=== PATIENT | female | born 1995 | race Caucasian/White ===

== ENCOUNTER 2019-03-04 10:57 | Emergency (ER) | payer BC, SELFPAY ==
[2019-03-04 10:58] VITALS: BP 146/80; PULSE 88; RESP 16; TEMP 36.8; O2SAT 98; BMI 36.1
--- NOTE | 2019-03-04 11:11 | ED.VISSUMM ---
- ER Visit Summary Date of Service: 03/04/19 Chief Complaint: Abdominal pain History of Present Illness: The patient is a 23 F with a 3-day history of epigastric abdominal pain. She had diarrhea but it is now improving. She denies nausea or vomiting. She denies reflux symptoms. Physical Examination: Vital signs unremarkable. Patient sitting upright in bed no acute distress. Nontoxic-appearing. Head neck examination normal. Heart is regular rate and rhythm. Lung sounds are clear. Abdomen is soft with focal tenderness in epigastrium. No guarding or rebound. Hypoactive bowel sounds are present throughout. Test Results: CBC and chemistry studies unremarkable. LFTs and lipase normal. test negative. Emergency Department Course and Treatment: Patient was given morphine, Zofran, and IV fluids. On repeat evaluation she does report mild improvement. Bedside ultrasound was performed of the right upper quadrant did not show any obvious gross abnormalities. CT abdomen pelvis with contrast shows no acute pathology. Test results were discussed with patient and mother at bedside. She will be started on an antacid medicine and given something for pain. She will follow-up with her primary care physician, Dr. Lopez. Treatment Plan: [] Disposition: Discharge Impression: Epigastric pain, uncertain etiology This note was generated with miDrive dictation software. It may contain incorrect words, spelling, and punctuation that were not noted in review of the chart prior to signing ED Disposition - Plan for ED Patient: Disposition: Home or Assisted Living Instructions: ED Epigastric Pain [facility] Prescriptions: Hydrocodone Bitart/Apap 5-325 [Talbott 5MG-325MG] 1 tablet PO Q6H PRN PRN 3 Days #10 tablet PRN Reason: Pain Omeprazole [Prilosec] 20 mg PO DAILY #30 capsule Referrals: Osiel Lopez III, MD [Primary Care Provider] - 1 Week
[2019-03-04] MEDS: Morphine 4 MG/ML Syringe IV (11:38)
[2019-03-04] MEDS: 0.9% Normal Saline 1,000 ML 150 ML IV (11:40)
[2019-03-04] MEDS: Ondansetron 4 MG/2 ML Vial IV (11:40)
[2019-03-04 11:52] LABS: Absolute Lymphocyte Count 2.66 X10^3/ul (0.83-4.51); Absolute Neutrophil Count 4.7 X10^3/uL (2.0-7.7); Basophil# 0.04 X10^3/uL; Basophil% 0.5 % (0-1); Eosinophil# 0.47 X10^3/uL; Eosinophils% 5.6 % (0-5); Hematocrit 38.3 % (37-47); Lymphocyte # 2.66 X10^3/ul (4.0); Lymphocyte % 31.5 % (19-41); Mean Corp Hgb Conc 33.9 g/gl (32-36); Mean Corpuscular Hgb 29.7 pg (27.0-32.0); Mean Corpuscular Volume 87.4 fL (81-99); Mean Platelet Vol. 10.1 fl (6.2-12.0); Monocyte# 0.58 X10^3/uL; Monocyte% 6.9 % (0-10); Neutrophil # 4.68 X10^3/uL (2.7-7.7); Neutrophil % 55.3 % (47-70); Platelet Count 255 K/mm3 (150-450); RBC Distribution Width CV 12.4 % (11.6-14.6); RBC Distribution Width SD 40.2 fl (35.1-43.9); Red Blood Count 4.38 M/mm3 (4.2-5.4); White Blood Count 8.5 K/mm3 (4.4-11.0)
[2019-03-04 11:56] LABS: AST(SGOT) 18 U/L (15-37); Alanine Aminotransfer ALT/SGPT 24 U/L (13-56); Albumin, Serum 3.6 g/dL (3.2-5.0); Alkaline Phosphatase 53 U/L (45-117); Anion Gap 7 (5-15); BUN 13 mg/dL (7-18); BUN/Creat Ratio 17.3 RATIO (10-20); Bilirubin, Direct 0.11 mg/dL (0.00-0.30); Calcium,Total 9.3 mg/dL (8.5-10.1); Chloride 110 mmol/L (98-107); Creatinine, Serum 0.75 mg/dL (0.55-1.02); EST Glomerular Filtration Rate 103 mL/min (>60); Est Glom Filt Rate - Afr Amer 125 mL/min (>60); Estimated Creatinine Clearance 106.77 ml/min; Glucose 92 mg/dL (74-106); Lipase 242 U/L (73-393); POSITIVE COUNT NO; POSITIVE DIFFERENTIAL NO; POSITIVE MORPHOLOGY NO; Protein, Total 7.6 g/dL (6.4-8.2); Sodium Level 142 mmol/L (136-145)
[2019-03-04 12:10] LABS: Internal QC Validated? YES +Cl - CLEAR BKGD; Pregnancy, Serum, hCG Quali. NEGATIVE Negative
--- NOTE | 2019-03-04 12:29 | CT_ITS ---
STUDY: CT ABDOMEN AND PELVIS WITH CONTRAST REASON FOR EXAM: Female, 23 years old. Upper abdominal pain RADIATION DOSAGE (If Supplied By Facility): CTDIvol = ( 14.63 ) mGy, DLP = ( 1144.99 ) mGycm TECHNIQUE: Transaxial images were obtained from the dome of the diaphragm to the symphysis pubis without oral contrast. 100 ml of Isovue 300 contrast was administered. Sagittal and coronal images were reconstructed. Individualized dose optimization techniques were used for this CT. COMPARISON: None. FINDINGS: The visualized lung bases are clear. The visualized portions of the heart and pericardium are within normal limits. There are no calcified gallstones present. The liver is within normal limits. There are no suspicious hepatic lesions. The spleen is normal in size. The pancreas is within normal limits. The adrenal glands are within normal limits. There are no renal or ureteral stones. There is no hydronephrosis. There are no focal renal lesions. Normal visualized stomach. There is no bowel obstruction or inflammation. The appendix is visualized and appears normal. The aorta is normal in caliber. There is no abdominal or pelvic free air, free fluid, fluid collection or lymphadenopathy. There are no destructive osseous lesions. CT/Abdomen/Pelvis WITH Contrast IMPRESSION: No acute abdominal or pelvic pathology. Electronically Signed: Gilbert Domínguez, at 14:57 EDT Tel , Service support ,
[2019-03-04 13:53] VITALS: BP 120/68; PULSE 66; RESP 17; O2SAT 98
[2019-03-04 15:28] VITALS: BP 123/75; PULSE 77; RESP 18; O2SAT 98
== END 2019-03-04 15:39 | disposition home or self-care (01) ==
PROVIDERS: Emergency Provider Emergency Medicine; Family Provider Family Medicine; PCP Family Medicine
DX: R10.13 Epigastric pain (principal); R19.7 Diarrhea, unspecified
CPT/HCPCS: 74177; 80048; 80076; 83690; 84703; 85025; 96361; 96374; 96375; 99284; J7030; Q9967; A4216; J2405

== ENCOUNTER 2024-04-05 21:10 | Inpatient (IN) | payer BC, SELFPAY ==
[2024-04-05 21:20] VITALS: BP 144/85; PULSE 102
[2024-04-05 21:21] VITALS: BMI 44.6
[2024-04-05] MEDS: Lactated Ringers 1,000 ML 50 ML IV (21:25)
[2024-04-05 21:29] VITALS: RESP 14; TEMP 36.3
[2024-04-05 21:30] VITALS: TEMP 36.3
[2024-04-05 21:34] VITALS: BP 147/77; PULSE 84; O2SAT 95
[2024-04-05] MEDS: 0.9% Normal Saline Single 100 ML IV.SOLN. INTRA-UTER (21:37)
[2024-04-05 21:49] LABS: Absolute Lymphocyte Count 2.49 X10^3/uL (0.83-4.51); Absolute Neutrophil Count 9.6 X10^3/uL (2.0-7.7); Basophil# 0.04 X10^3/uL; Basophil% 0.3 % (0-1); Eosinophil# 0.12 X10^3/uL; Eosinophils% 0.9 % (0-5); Hematocrit 39.7 % (37-47); Hemoglobin 13.4 g/dL (12.0-15.0); Lymphocyte # 2.49 X10^3/ul (0.83-4.51); Lymphocyte % 18.9 % (19-41); Mean Corp Hgb Conc 33.8 g/dL (32-36); Mean Corpuscular Hgb 31.2 pg (27.0-32.0); Mean Corpuscular Volume 92.3 fL (81-99); Mean Platelet Vol. 11.5 fl (6.2-12.0); Monocyte# 0.85 X10^3/uL; Monocyte% 6.4 % (0-10); NRBC Flagged by Analyzer 0 % (0-5); Neutrophil % 72.9 % (47-70); Platelet Count 205 K/mm3 (150-450); RBC Distribution Width CV 13.7 % (11.6-14.6); RBC Distribution Width SD 46.3 fl (35.1-43.9); White Blood Count 13.2 K/mm3 (4.4-11.0)
--- NOTE | 2024-04-05 21:56 | PCM.HP.OB ---
HPI - General General Date of Admission: 04/05/24 HPI Narrative HETAL MENDEZ, is a 28 F at 39.2 weeks gestation who presents for induction of labor for obesity. Maternal Data Information TOAN Calculator Estimated Delivery Date Method Current WG Current Estimate 04/10/24 Manual 39w 2d PFSH PFSH Home Medications ?Medication ?Instructions ?Recorded ?Last Taken ?Type acyclovir 400 mg tablet 400 mg PO TID HSV 04/05/24 04/04/24 History aspirin 81 mg capsule 81 mg PO DAILY 04/05/24 04/04/24 History vit no.95-ferrous 1 tab PO DAILY 04/05/24 04/04/24 History fumarate 28 mg-folic acid 800 mcg tablet () Allergy/AdvReac Type Severity Reaction Status Date / Time No Known Allergies Allergy Verified 04/05/24 21:18 Surgical History History of tonsillectomy Social History Smoking Status: Never smoker History Elective abortions Hx Para 0 Spontaneous abortions Hx # Term Pregnancies Ectopic pregnancies Hx # Pregnancies Multiple births # of living children NST FHR Rate Baby A Baseline: 140 Variability:: Moderate Accelerations:: 15 x 15 Decelerations:: None NST Reactive:: Yes FHR Category:: Category I Uterine Activity:: Occasional ROS Eyes Eyes: Denies blurry vision, change in vision or spots in vision ENT HEENT: Denies dizziness or headache(s) Cardiovascular Cardiovascular: Denies abdominal pain, chest pain or dyspnea Respiratory/Chest Respiratory/Chest: Denies cough, dyspnea, shortness of breath at rest or shortness of breath with exertion Gastrointestinal Gastrointestinal: Denies abdominal pain, diarrhea or vomiting Genitourinary Genitourinary: Denies change in urinary stream, difficulty urinating or dysuria Musculoskeletal Musculoskeletal: Reports none Integumentary Integumentary: Denies rash Neurologic Neurologic: Denies dizziness, headache(s), memory loss or weakness Psychiatric Psychiatric: Reports none Vital Signs Vital Signs Vital Signs: 04/05/24 21:20 04/05/24 21:20 04/05/24 21:29 Temperature Temperature Source Temporal Pulse Rate 102 H Respiratory Rate Blood Pressure 144/85 H BP Systolic 144 BP Diastolic 85 Pulse Ox 04/05/24 21:29 04/05/24 21:29 04/05/24 21:30 Temperature 97.3 F L 97.3 F L Temperature Source Pulse Rate Respiratory Rate 14 Blood Pressure BP Systolic BP Diastolic Pulse Ox 04/05/24 21:34 04/05/24 21:34 04/05/24 21:34 Temperature Temperature Source Pulse Rate 84 Respiratory Rate Blood Pressure 147/77 H BP Systolic 147 BP Diastolic 77 Pulse Ox 95 Weight Weight: 268 lb 1.314 oz Body Mass Index (BMI) 44.6 Physical Exam Const alert and no apparent distress General Appearance: cooperative Orientation / Consciousness: awake Exam Limitations: no limitations HEENT normocephalic Eyes General Eye: normal appearance of both eyes Neck full ROM Chest inspection of chest normal Resp normal respiratory effort and normal air movement Effort and Inspection: symmetric chest movement Auscultation: clear to auscultation bilaterally Cardio regular rate GI soft to palpation, non-tender and non-distended Inspection: and other Back/Spine normal ROM Extremity full ROM, normal capillary refill and no calf tenderness Skin no rashes or lesions noted Neuro oriented x3 and CN's II-XII intact bilaterally Psych mental status grossly normal Labs Labs Labs: Antibody Screen Pending Hct 39.7 % (37-47) Hgb 13.4 g/dL (12.0-15.0) Syphilis Total Ab Pending GBS negative Assessment & Plan (1) 39 weeks gestation of : (2) Encounter for induction of labor: (3) Obesity affecting : (4) History of herpes genitalis: (5) Vitamin B deficiency: (6) Rh negative status during : (7) Rubella non-immune status, antepartum: PLAN: Plan Admit to labor and delivery Routine labs Start IV fluids and run per orders CE 1.5/60/-3- Saravia bulb placed without difficulty and filled with 30 cc N/S Start Cytotec 25 mcg PO every 4 hours x 6 doses total Pain medications / nitrous oxide if indicated Dr. Stapleton notified of admission and is collaborating physician
[2024-04-05] MEDS: miSOPROStol 25 MCG TABLET PO (22:28)
[2024-04-05 22:45] LABS: Syphilis Antibodies Non-reactive
[2024-04-06] VITALS (49 sets, daily range): BP systolic 103–179; BP diastolic 51–105; PULSE 66–97; RESP 14–18; TEMP 36–37.3; O2SAT 89–100
[2024-04-06] MEDS: Oxytocin 15 Units/NS 250ml 15 UNITS/250 ML IV.SOLN 2 UNITS IV ×2 (02:39→18:55)
--- NOTE | 2024-04-06 07:04 | PCM.PN.CNM ---
Subjective Subjective Patient sleeping at this time. Objective Data Objective Data Vital Signs: Vital Signs Temp Pulse Resp BP Pulse Ox 97.2 F L 71 16 124/58 H 99 04/06/24 06:21 04/06/24 06:21 04/06/24 06:21 04/06/24 06:21 04/06/24 05:35 Weight: 268 lb 1.314 oz Body Mass Index (BMI) 44.6 Intake & Output: Intake and Output for Last 24 Hours 04/04/24 04/05/24 04/06/24 23:59 23:59 23:59 Intake Total 20.83 / 20.83 27.90 / 27.90 Balance 20.83 / 20.83 27.90 / 27.90 Lab / Micro Data 04/05/24 21:25 Labs: Laboratory Results - last 24 hr 04/05/24 21:25: WBC 13.2 H, RBC 4.30, Hgb 13.4, Hct 39.7, MCV 92.3, MCH 31.2, MCHC 33.8, RDW Std Deviation 46.3 H, RDW Coeff of Mamta 13.7, Plt Count 205, MPV 11.5, Immature Gran % (Auto) 0.600, Neut % (Auto) 72.9 H, Lymph % (Auto) 18.9 L, Schuyler % (Auto) 6.4, Eos % (Auto) 0.9, Baso % (Auto) 0.3, Absolute Neuts (auto) 9.6 H, Absolute Lymphs (auto) 2.49, Nucleated RBC % 0, Syphilis Total Ab Non-reactive, Blood Type A NEGATIVE, Antibody Screen NEGATIVE Assessment & Plan (1) 39 weeks gestation of : (2) Encounter for induction of labor: (3) Obesity affecting : (4) History of herpes genitalis: (5) Vitamin B deficiency: (6) Rh negative status during : (7) Rubella non-immune status, antepartum: PLAN: Plan Saravia bulb out 30 minutes after placement CE 4/80/-3 per nursing- high and head not well applied Cat. 1 tracing Pitocin IV at 12 mu/min- continue to increase per policy Epidural when indicated
[2024-04-06] MEDS: Lactated Ringers 1,000 ML 999 ML IV (11:46)
[2024-04-06] MEDS: Lactated Ringers 1,000 ML 50 ML IV (12:37)
[2024-04-06] MEDS: fentaNYL-bupivacaine (epidural) 100 ML BAG EPIDURAL ×3 (13:27→22:21)
--- NOTE | 2024-04-06 16:17 | PCM.PN.OB ---
Subjective Subjective Resting in bed comfortably with epidural. Partner at bedside. Objective Data Objective Data Vital Signs: Vital Signs Temp Pulse Resp BP Pulse Ox 96.8 F L 82 16 122/61 H 100 04/06/24 15:23 04/06/24 15:24 04/06/24 15:23 04/06/24 15:24 04/06/24 13:40 Weight: 268 lb 1.314 oz Body Mass Index (BMI) 44.6 Intake & Output: Intake and Output for Last 24 Hours 04/04/24 04/05/24 04/06/24 23:59 23:59 23:59 Intake Total 20.83 / 20.83 1618.38 / 1618.38 Balance 20.83 / 20.83 1618.38 / 1618.38 Lab / Micro Data 04/05/24 21:25 Labs: Laboratory Results - last 24 hr 04/05/24 21:25: WBC 13.2 H, RBC 4.30, Hgb 13.4, Hct 39.7, MCV 92.3, MCH 31.2, MCHC 33.8, RDW Std Deviation 46.3 H, RDW Coeff of Mamta 13.7, Plt Count 205, MPV 11.5, Immature Gran % (Auto) 0.600, Neut % (Auto) 72.9 H, Lymph % (Auto) 18.9 L, Lander % (Auto) 6.4, Eos % (Auto) 0.9, Baso % (Auto) 0.3, Absolute Neuts (auto) 9.6 H, Absolute Lymphs (auto) 2.49, Nucleated RBC % 0, Syphilis Total Ab Non-reactive, Blood Type A NEGATIVE, Antibody Screen NEGATIVE Physical Exam Narrative: 4.5cm/70%/-2 large gush of fluid, clear. ROP Assessment & Plan (1) Obesity affecting : (2) Encounter for induction of labor: (3) 39 weeks gestation of : PLAN: Plan 1) Induction of labor, protracted 2) Pitocin at 20mu's, discussed possible pitocin break after next exam 3) LOP, positional changes 4) updated on patient status, above assessment and plan
[2024-04-06] MEDS: 0.9% Saline Lock 10 ML Syringe IV (17:50)
[2024-04-06] MEDS: Ondansetron 4 MG/2 ML Vial IV ×2 (17:50→22:15)
[2024-04-06] MEDS: Calcium Carbonate 500 MG Tablet 1000 MG PO (18:55)
[2024-04-06] MEDS: Lactated Ringers 1,000 ML 200 ML IV (18:59)
[2024-04-06] MEDS: LACTATED RINGERS 500 ML 999 ML IV (20:32)
[2024-04-06] MEDS: Amnioinfusion- 0.9% NS 1,000 ML IV.SOLN. INTRA-UTER (20:37)
[2024-04-06] MEDS: DiphenhydrAMINE 50 MG/ML Syringe 25 MG IV (22:04)
[2024-04-07] VITALS (46 sets, daily range): BP systolic 110–147; BP diastolic 51–63; PULSE 80–110; RESP 14–18; TEMP 36–37.1; O2SAT 97–100
[2024-04-07] MEDS: Oxytocin 15 Units/NS 250ml 15 UNITS/250 ML IV.SOLN 83 UNITS IV (01:55)
--- NOTE | 2024-04-07 01:56 | EX.PCM.OBRPT ---
Maternal Data Information TOAN Calculator Estimated Delivery Date Method Current WG Current Estimate 04/10/24 Manual 39w 4d Vaginal Delivery Maternal Presentation Maternal Presentation: Elective Induction Type of Induction: Pitocin, Saravia Bulb and Cytotec Medical Reason for Induction: - (obesity) Operative Information Date of Procedure: 04/07/24 Pre-Operative Diagnosis: Induction of labor, Obesity Post-Operative Diagnosis: , 2nd degree perineal laceration Surgery / Procedure Performed: Spontaneous Vaginal Delivery Type of Anesthesia: Epidural Estimated Blood Loss: 300 ml Time of Delivery: :33 Findings Description of Procedure: Progressed to complete with urge to push. Epidural for pain management. of viable female over 2nd degree perineal laceration. APGARS 8,9 respectively. Infant head delivered with body immediately forthcoming. Placed on maternal abdomen, strong cry. Mouth and nares suctioned for secretions. Pitocin started for active 3rd stage management. Cord doubly clamped and cut by FOB after pulsations ceased, delayed cord clamping. Placenta delivered intact via perez, 3 vessel cord intact. Perineum inspected and revealed 2nd degree perineal laceration. Repaired with 3.0 vicryl rapide and epidural. Fundus firm and hemostasis achieved. EBL 300ml. Mom and baby stable, planning to breastfeed. Family bonding well. notified of delivery. Presentation: Vertex and IRA Amniotic Membrane Rupture Type: Spontaneous Amniotic Fluid Description: Clear Placental Delivery Description: Spontaneous Placenta Disposition: [facility] Cord Vessel Description: 3 Vessels Cord Entanglement: Around neck x 1, loose Nuchal Cord Compression: With compression A Gender: Female (1 minute): 8 (5 minute): 9 Delayed Cord Clamping: Yes Post Vaginal Delivery Medications Given After Delivery: IV Pitocin Episiotomy Description: None Laceration: Perineal Extension/lac and 2nd degree Complication Complications: None
[2024-04-07] MEDS: Acetaminophen 500 MG Tablet 1000 MG PO ×2 (02:53→13:33)
[2024-04-07 06:17] LABS: Absolute Lymphocyte Count 1.76 X10^3/uL (0.83-4.51); Absolute Neutrophil Count 22.2 X10^3/uL (2.0-7.7); Basophil# 0.06 X10^3/uL; Basophil% 0.2 % (0-1); Eosinophil# 0.01 X10^3/uL; Hematocrit 35.8 % (37-47); Hemoglobin 12.2 g/dL (12.0-15.0); Lymphocyte # 1.76 X10^3/ul (0.83-4.51); Lymphocyte % 6.6 % (19-41); Mean Corp Hgb Conc 34.1 g/dL (32-36); Mean Corpuscular Hgb 31.4 pg (27.0-32.0); Mean Platelet Vol. 11.2 fl (6.2-12.0); Monocyte# 2.35 X10^3/uL; Monocyte% 8.8 % (0-10); NRBC Flagged by Analyzer 0 % (0-5); Neutrophil # 22.18 X10^3/uL (2.7-7.7); Neutrophil % 83.2 % (47-70); POSITIVE DIFFERENTIAL YES; Platelet Count 191 K/mm3 (150-450); RBC Distribution Width CV 13.6 % (11.6-14.6); RBC Distribution Width SD 45.7 fl (35.1-43.9); Red Blood Count 3.89 M/mm3 (4.2-5.4); White Blood Count 26.7 K/mm3 (4.4-11.0)
[2024-04-07 06:32] LABS: Differential Indicated SCAN CRITERIA MET
[2024-04-07 06:42] LABS: Differential Comment SCANNED
[2024-04-07] MEDS: Ibuprofen 600 MG Tablet PO ×2 (08:15→15:56)
[2024-04-07] MEDS: Rho(D) Immune Globulin 300 MCG (1500 Unit) Syringe IV (10:36)
[2024-04-07] MEDS: 0.9% Saline Lock 10 ML Syringe IV (10:43)
[2024-04-08 00:20] VITALS: BP 118/58; PULSE 77; PULSE 79; RESP 20; TEMP 36.1; O2SAT 97
[2024-04-08 03:05] VITALS: BP 134/72; PULSE 83; PULSE 95; RESP 16; TEMP 36.7; O2SAT 99
[2024-04-08 08:50] VITALS: BP 127/65; PULSE 74; RESP 16; TEMP 36.3
[2024-04-08 08:52] VITALS: TEMP 36.3
[2024-04-08 08:53] VITALS: BP 127/65; PULSE 74
--- NOTE | 2024-04-08 09:38 | DS.PCM_ITS ---
Providers Date of Admission: 04/05/24 Date of Discharge: 04/08/24 Primary Care Physician: Lizbeth Primary Care Phys Reason For Visit: VAGINAL DELIVERY Diagnosis Discharge Diagnosis (1) Obesity affecting : Status: Acute Code(s): O99.210 - Obesity complicating , unspecified trimester (2) Encounter for induction of labor: Status: Acute Code(s): Z34.90 - Encounter for supervision of normal , unspecified, unspecified trimester (3) 39 weeks gestation of : Status: Acute Code(s): Z3A.39 - 39 weeks gestation of Medications at Discharge Home Medications vit no.95-ferrous fumarate 28 mg-folic acid 800 mcg tablet () 1 tab PO DAILY 04/05/24 Hospital Course Operations None Procedures None Summary of Care Provided Hospital Course: 28-year-old Bonita parous patient admitted for induction of labor at 39 gestational weeks due to maternal obesity. Induction of labor was started on the evening of 04/05/2024. She had Cytotec and Saravia induction followed by artificial rupture membranes and Pitocin. She progressed to complete and had a vaginal delivery on 04/07/2024. Today she denied headache or visual changes. She was ambulating, urinating tolerating regular diet without difficulty and desired discharge home. She was discharged home with routine instructions and follow-up. She was comfortable taking over the counter pain medications as needed for pain control. Today patient denies any headache, visual changes or epigastric pain. Average lochia. No other complaints today. Physical Exam Const alert and no apparent distress Narrative: Fundus firm, below umbilicus. Weight / BMI Weight Weight: 121.6 kg Body Mass Index (BMI) 44.6 ABG / Lab / Microbiology Data 04/07/24 06:03 D/C Instructions May resume sexual activity in: 6 weeks Please Follow Up With: April Pérez CNM When: Follow up with our officewithin 1 week and 6 weeks or as needed. Call [phone] or send a [employer] message to schedule or as needed with questions Meaningful Use Info Meaningful Use Meaningful Use Diagnoses (Choose all that apply): None applicable Ischemic Stroke Statin Dosing Therapy Reference: STATIN DOSE THERAPY REFERENCE: * Patients > 75 years receive moderate or high dose statin therapy. * Patients 75 years or YOUNGER should receive HIGH intensity statin dose unless contraindicated. You will be required to document reason for non-treatment if statin daily dose does not meet guidelines. HIGH DOSE STATIN THERAPY DAILY Atorvastatin > than or = to 40 mg Rosuvastatin > than or = to 20 mg Amlodipine + Atorvastatin > than or = to 2.5/40 mg Ezetimibe + Simvastatin 10/80 mg Simvastatin 80mg Discharge Plan Admission Admit Date/Time: 04/05/24 21:10 Primary Reason for Your Visit: Vaginal delivery Attending Provider: Mechelle Correa Primary Care Provider: Care Physician,Lizbeth Primary Discharge Orders/Prescriptions Prescriptions: Discontinued acyclovir 400 mg tablet 400 mg PO TID aspirin 81 mg capsule 81 mg PO DAILY No Action PNV cmb#95-ferrous fumarate-FA [] 28 mg iron- 800 mcg tablet 1 tab PO DAILY Referrals / Follow Up: Care Physician,No Primary [Primary Care Provider] - Disposition Disposition (needs filled in before D/C Order can be placed): Home, Self Care
[2024-04-09 13:37] LABS: Pathologist Review Reviewed
== END 2024-04-08 11:40 | disposition home or self-care (01) | DRG 807 ==
PROVIDERS: Advanced Practice Midwife; Admitting Provider Advanced Practice Midwife; Referring Provider Advanced Practice Midwife; Visit Provider Advanced Practice Midwife
DX: O99.214 Obesity complicating childbirth (principal); Z37.0 Single live birth; E53.9 Vitamin B deficiency, unspecified; Z3A.39 39 weeks gestation of pregnancy; Z67.91 Unspecified blood type, Rh negative; O99.284 Endocrine, nutritional and metabolic diseases complicating childbirth; O70.1 Second degree perineal laceration during delivery; O69.81X0 Labor and delivery complicated by cord around neck, without compression, not applicable or unspecified; Z86.19 Personal history of other infectious and parasitic diseases; Z79.82 Long term (current) use of aspirin
CPT/HCPCS: 36415; 59025; 59050; 85025; 85461; 86780; 86850; 86900; 86901; 90384; 99221; J7030; J7120; A4216; G0378; J2405; J2790; J2791